=== PATIENT | male | born 1970 | race Hispanic/Latino ===

== ENCOUNTER 2019-05-09 13:55 | Emergency (ER) | payer OTHER ==
[2019-05-09] MEDS ORDERED: CEFTRIAXONE SODIUM 1 GM ONE (15:43)
[2019-05-09] MEDS ORDERED: LIDOCAINE HCL-MPF 1% 2ML VIAL ONE (15:43)
[2019-05-09] MEDS ORDERED: KETOROLAC TROMETHAMINE 60 MG/2 ML VIAL ONE (15:43)
[2019-05-09 15:56] LABS: BASOPHILS % (AUTO) 0.3 % (0.0-5.0); EOSINOPHILS % (AUTO) 0.3 % (0.0-8.0); HEMATOCRIT 45.5 % (42-54); LYMPHOCYTES % (AUTO) 21.4 % (21.0-51.0); MEAN CORPUSCULAR HEMOGLOBIN 29.4 pg (27.0-33.0); MEAN CORPUSCULAR HGB CONC 34.3 g/dL (32.0-36.0); MEAN CORPUSCULAR VOLUME 85.8 fL (79-99); MONOCYTES % (AUTO) 8.2 % (3.0-13.0); NEUTROPHILS % (AUTO) 69.6 % (40.0-77.0); PLATELET COUNT (AUTO) 188 K/uL (130-400); RED CELL DISTRIBUTION WIDTH 12.1 % (11.0-15.5); WHITE BLOOD COUNT (AUTO) 9.5 K/uL (4.8-10.8)
[2019-05-09 16:08] LABS: CREATININE 0.8 mg/dL (0.5-1.5); POTASSIUM 3.7 mmol/L (3.5-5.1)
[2019-05-09 16:12] LABS: ALBUMIN 3.7 g/dL (3.5-5.0); BILIRUBIN,TOTAL 0.4 mg/dL (0.2-1.0); TOTAL PROTEIN, SERUM 8.3 g/dL (6.0-8.3)
== END 2019-05-09 16:43 | disposition home or self-care (01) ==
LOC: EDH 13:55
DX: K02.9 Dental caries, unspecified (principal); R73.9 Hyperglycemia, unspecified
CPT/HCPCS: 36415; 80053; 85025; 96372 ×2; 99284; J0696; J1885; J3490

== ENCOUNTER 2019-09-22 16:21 | Inpatient (IN) | payer SELFPAY ==
[~2019-09-22] VITALS: Ht 177.8 cm; Wt 94.8 kg
[2019-09-22] MEDS ORDERED: ZOSYN 3.375GM+NS 50ML 50 ML IV ONE (17:26)
[2019-09-22 18:14] LABS: BASOPHILS % (AUTO) 0.2 % (0.0-5.0); EOSINOPHILS % (AUTO) 0.6 % (0.0-8.0); MEAN CORPUSCULAR HEMOGLOBIN 29.1 pg (27.0-33.0); MEAN CORPUSCULAR VOLUME 85.4 fL (79-99); MONOCYTES % (AUTO) 7.9 % (3.0-13.0); NEUTROPHILS % (AUTO) 80.8 % (40.0-77.0); PLATELET COUNT (AUTO) 204 K/uL (130-400); RED BLOOD CELL COUNT(AUTO) 4.92 MIL/uL (4.50-6.20); RED CELL DISTRIBUTION WIDTH 11.9 % (11.0-15.5); WHITE BLOOD COUNT (AUTO) 15.6 K/uL (4.8-10.8)
[2019-09-22 18:15] LABS: APPEARANCE,URINE Cloudy (CLEAR); BILIRUBIN,URINE Negative (NEGATIVE); COLOR,URINE Yellow (YELLOW); GLUCOSE, URINE (UA) >=1000 mg/dL (NEGATIVE); KETONES,URINE 40 mg/dL (NEGATIVE); LEUKOCYTE ESTERASE ,URINE Moderate (NEGATIVE); NITRATE,URINE Negative (NEGATIVE); OCCULT BLOOD,URINE Moderate (NEGATIVE); PH,URINE 5.5 (5.0-8.0); PROTEIN,URINE POS 1+ mg/dL (NEGATIVE)
[2019-09-22] MEDS ORDERED: ACETAMINOPHEN 325 MG TAB ONE (18:23)
[2019-09-22 18:29] LABS: INR 1.02 (0.85-1.15); PARTIAL THROMBOPLASTIN TIME 31.9 SEC (26.3-35.5)
[2019-09-22 18:30] LABS: CARBON DIOXIDE 30 mmol/L (21-32); CHLORIDE 95 mmol/L (101-111); CREATININE 0.9 mg/dL (0.5-1.5); GLOMERULAR FILTR. RATE CALC 96 mL/min (>60); GLUCOSE,RANDOM 183 mg/dL (70-105); POTASSIUM 3.6 mmol/L (3.5-5.1); SODIUM SERUM 133 mmol/L (136-145); UREA NITROGEN, BLOOD 11 mg/dL (7-18)
[2019-09-22] MEDS ORDERED: MORPHINE SULFATE 4 MG/1ML SYG ONE (18:39)
[2019-09-22] MEDS ORDERED: ONDANSETRON HCL 4 MG/2 ML VIAL ONE (18:39)
[2019-09-22 18:42] LABS: ALANINE AMINOTRANSFERASE 26 U/L (12-78); ALBUMIN 3.1 g/dL (3.5-5.0); ASPARTATE AMINOTRANSFERASE 20 U/L (10-37); BILIRUBIN,TOTAL 0.6 mg/dL (0.2-1.0); CREATINE KINASE, TOTAL 52 U/L (21-232); MYOGLOBIN 17 ng/mL (10-92); TOTAL PROTEIN, SERUM 8.1 g/dL (6.0-8.3); TROPONIN I < 0.04 ng/mL (0.00-0.06)
[2019-09-22 18:44] LABS: BACTERIA,URINE Moderate /HPF (None Seen); MUCUS,URINE Moderate LPF (None Seen); SQUAMOUS EPITHELIAL CELL,UR Moderate /HPF (0-2); WBC,URINE 26-50 /HPF (0-1)
[2019-09-22] MEDS ORDERED: IOHEXOL-350 50ML VIAL IV ONE (18:54)
[2019-09-22] MEDS ORDERED: LACTULOSE 20 GM/30 ML UDCUP PO PRN (19:45)
[2019-09-22] MEDS ORDERED: ONDANSETRON HCL 4 MG/2 ML VIAL IV PRN (19:45)
[2019-09-22] MEDS ORDERED: HYDRALAZINE HCL 20 MG/ML VIAL IV PRN (19:45)
[2019-09-22] MEDS ORDERED: ACETAMINOPHEN 325 MG TAB PO PRN (19:45)
[2019-09-22] MEDS ORDERED: MORPHINE SULFATE 2 MG/ML 1ML SYG ONE (20:36)
[2019-09-22] MEDS: FAMOTIDINE 20MG TAB 20 MG TAB PO SCH (21:00)
[2019-09-22] MEDS: INSULIN HUMULIN R 100 UNIT/ML 3ML SQ SCH (21:00)
[2019-09-22] MEDS ORDERED: KETOROLAC TROMETHAMINE 15MG/ML ONE (21:36)
[2019-09-22] MEDS ORDERED: VANCOMYCIN PROTOCOL PER PHARMACY IV SCH (21:45)
[2019-09-22] MEDS: PHARMACY COMMUNICATION MISC SCH (22:15)
[2019-09-22] MEDS: SODIUM CHLORIDE 0.9% 1000ML 1,000 ML IV SCH (23:20)
[2019-09-23] VITALS (7 sets, daily range): BP systolic 117–144; BP diastolic 62–83
[2019-09-23] MEDS: PHARMACY COMMUNICATION MISC SCH ×5 (00:15→08:15)
[2019-09-23] MEDS: ZOSYN 3.375GM+NS 50ML 50 ML IV SCH ×3 (02:06→17:06)
[2019-09-23] MEDS: KETOROLAC TROMETHAMINE 15MG/ML IV PRN ×4 (02:34→21:55)
[2019-09-23 03:59] LABS: BASOPHILS % (AUTO) 0.1 % (0.0-5.0); EOSINOPHILS % (AUTO) 0.2 % (0.0-8.0); HEMATOCRIT 37.1 % (42-54); LYMPHOCYTES % (AUTO) 8.2 % (21.0-51.0); MEAN CORPUSCULAR VOLUME 85.5 fL (79-99); MONOCYTES % (AUTO) 9.6 % (3.0-13.0); NEUTROPHILS % (AUTO) 81.3 % (40.0-77.0); PLATELET COUNT (AUTO) 180 K/uL (130-400); RED BLOOD CELL COUNT(AUTO) 4.34 MIL/uL (4.50-6.20); RED CELL DISTRIBUTION WIDTH 11.7 % (11.0-15.5); WHITE BLOOD COUNT (AUTO) 15.1 K/uL (4.8-10.8)
[2019-09-23 04:16] LABS: CREATININE 0.9 mg/dL (0.5-1.5); POTASSIUM 3.5 mmol/L (3.5-5.1)
[2019-09-23] MEDS: SODIUM CHLORIDE 0.9% 1000ML 1,000 ML IV SCH ×2 (06:31→19:28)
[2019-09-23] MEDS: MORPHINE SULFATE 2 MG/ML 1ML SYG IV PRN (07:22)
[2019-09-23] MEDS: INSULIN HUMULIN R 100 UNIT/ML 3ML SQ SCH ×4 (07:30→21:57)
[2019-09-23] MEDS: FAMOTIDINE 20MG TAB 20 MG TAB PO SCH ×2 (09:00→21:56)
[2019-09-23] MEDS: ACETAMINOPHEN 325 MG TAB PO PRN ×2 (09:12→16:42)
--- NOTE | 2019-09-23 10:00 | NUR ---
SPOKE WITH DR NASH REGARDING CONSULT, INFORMED MD OF PT FEVER OF 102.0. NO ORDERS GIVEN.
[2019-09-23] MEDS ORDERED: COMPOUND IV REFRIGERATED 1 EACH IVSOLN MISC PRN (11:15)
[2019-09-23] MEDS ORDERED: VANCOMYCIN 2 GM in SODIUM CHLORIDE 0.9% 500ML 500 ML IV SCH (11:15)
--- NOTE | 2019-09-23 13:20 | NUR ---
MET W PATIENT FOR DC PLANNING PATIENT LIVES WITH SPOUSE [facility] WHO WILL PROVIDE TRANSPORT HOME. PATIENT IS ACTIVE, INDEPENDENT, EMPLOYED, UNINSURED, USED TO BE WITH [facility] AND STATES WILL FOLLOW UP WITH THEM ON DISCHARGE. [facility] PKT PLACED IN CHART FOR DISHCRGE- PT ON CONTACT PRECUATIONS. CM TO FOLLOW Addendum: 09/26/19 at 0841 by TRA CABELLO RN CM Amended: Links added.
[2019-09-23] MEDS: ENOXAPARIN SODIUM 40 MG/0.4 ML SYRINGE SQ SCH (16:44)
[2019-09-23] MEDS ORDERED: PHARMACY COMMUNICATION MISC SCH (17:15)
[2019-09-23] MEDS: VANCOMYCIN 1.25 GM in SODIUM CHLORIDE 0.9% 250 ML IV SCH (21:54)
[2019-09-24] VITALS (19 sets, daily range): BP systolic 103–141; BP diastolic 53–94
[2019-09-24] MEDS: ZOSYN 3.375GM+NS 50ML 50 ML IV SCH ×5 (01:00→23:56)
[2019-09-24] MEDS: SODIUM CHLORIDE 0.9% 1000ML 1,000 ML IV SCH ×3 (01:37→23:57)
[2019-09-24] MEDS: KETOROLAC TROMETHAMINE 15MG/ML IV PRN ×3 (03:36→19:24)
--- NOTE | 2019-09-24 05:06 | NUR ---
PATIENT UPDATE Pt NPO post mn, going for incision and drainage of abscess from the posterior neck . Medicated twice with tramadol 15 mg iv for pain score bet 9-10. Patient refusing to get the Morphine for pain meds, stated that it's really not helping him at all. Slept fairly overnight. Highest temp overnight of 99.4, continues with the Zosyn and Vancomycin for iv antibiotic management.
[2019-09-24 05:46] LABS: BASOPHILS % (AUTO) 0.3 % (0.0-5.0); CREATININE 0.9 mg/dL (0.5-1.5); EOSINOPHILS % (AUTO) 0.4 % (0.0-8.0); MEAN CORPUSCULAR HEMOGLOBIN 29.2 pg (27.0-33.0); MONOCYTES % (AUTO) 9.2 % (3.0-13.0); NEUTROPHILS % (AUTO) 80.5 % (40.0-77.0); PLATELET COUNT (AUTO) 175 K/uL (130-400); POTASSIUM 3.1 mmol/L (3.5-5.1); RED BLOOD CELL COUNT(AUTO) 4.07 MIL/uL (4.50-6.20); RED CELL DISTRIBUTION WIDTH 11.7 % (11.0-15.5); WHITE BLOOD COUNT (AUTO) 11.4 K/uL (4.8-10.8)
[2019-09-24] MEDS: VANCOMYCIN 1.25 GM in SODIUM CHLORIDE 0.9% 250 ML IV SCH ×3 (06:10→21:07)
[2019-09-24] MEDS: INSULIN HUMULIN R 100 UNIT/ML 3ML SQ SCH ×4 (06:10→21:08)
[2019-09-24] MEDS ORDERED: SUCCINYLCHOLINE 200MG/10ML SYR ONE (08:12)
[2019-09-24] MEDS ORDERED: LIDOCAINE PF 2% 5ML ABBOJECT ONE (08:12)
[2019-09-24] MEDS ORDERED: FENTANYL CITRATE PF 50 MCG/1 ML 2ML VIAL ONE ×2 (08:13→09:00)
[2019-09-24] MEDS ORDERED: MIDAZOLAM HCL 1 MG/ML 2ML VIAL ONE (08:13)
[2019-09-24] MEDS ORDERED: ONDANSETRON HCL 4 MG/2 ML VIAL ONE (08:13)
[2019-09-24] MEDS ORDERED: ROCURONIUM 10MG/1ML SYR 10 MG/ML ML ONE (08:13)
[2019-09-24] MEDS ORDERED: PROPOFOL 10 MG/ML 20ML VIAL IV ONE (08:13)
[2019-09-24] MEDS ORDERED: EPHEDRINE SULFATE 50 MG/ML AMPULE ONE (08:51)
[2019-09-24] MEDS: ENOXAPARIN SODIUM 40 MG/0.4 ML SYRINGE SQ SCH (09:00)
[2019-09-24] MEDS ORDERED: MEPERIDINE-PF 25 MG/ML SYG ONE ×2 (09:38→09:53)
[2019-09-24] MEDS: FAMOTIDINE 20MG TAB 20 MG TAB PO SCH ×2 (11:07→19:24)
[2019-09-24] MEDS: MORPHINE SULFATE 2 MG/ML 1ML SYG IV PRN (14:13)
[2019-09-24] MEDS ORDERED: POTASSIUM CHLORIDE 10% ELIXIR 20 MEQ/15 ML UDCUP PO PRN (18:45)
[2019-09-24] MEDS ORDERED: POTASSIUM CHLORIDE 20MEQ/100ML 100 ML IV PRN (18:45)
[2019-09-24] MEDS ORDERED: LIDOCAINE HCL-MPF 1% 2ML VIAL IV PRN (18:45)
[2019-09-25] MEDS: MORPHINE SULFATE 2 MG/ML 1ML SYG IV PRN ×2 (00:04→11:05)
[2019-09-25 00:10] VITALS: BP 132/83
[2019-09-25] MEDS: POTASSIUM CHLORIDE 20 MEQ ERTAB PO PRN ×3 (01:33→04:18)
[2019-09-25] MEDS: VANCOMYCIN 1.25 GM in SODIUM CHLORIDE 0.9% 250 ML IV SCH (04:18)
[2019-09-25 04:27] VITALS: BP 124/77
[2019-09-25] MEDS: INSULIN HUMULIN R 100 UNIT/ML 3ML SQ SCH ×2 (05:16→12:38)
[2019-09-25 05:21] LABS: BASOPHILS % (AUTO) 0.5 % (0.0-5.0); EOSINOPHILS % (AUTO) 0.9 % (0.0-8.0); HEMATOCRIT 33.9 % (42-54); LYMPHOCYTES % (AUTO) 23.6 % (21.0-51.0); MEAN CORPUSCULAR HEMOGLOBIN 28.7 pg (27.0-33.0); MEAN CORPUSCULAR VOLUME 86.9 fL (79-99); MONOCYTES % (AUTO) 10.6 % (3.0-13.0); NEUTROPHILS % (AUTO) 64.1 % (40.0-77.0); PLATELET COUNT (AUTO) 163 K/uL (130-400); RED CELL DISTRIBUTION WIDTH 11.9 % (11.0-15.5); WHITE BLOOD COUNT (AUTO) 6.4 K/uL (4.8-10.8)
[2019-09-25] MEDS: KETOROLAC TROMETHAMINE 15MG/ML IV PRN ×2 (06:31→12:17)
[2019-09-25 08:00] VITALS: BP 154/92
[2019-09-25] MEDS ORDERED: ACETAMINOPHEN-CODEINE 300/30MG TAB PO PRN (10:30)
[2019-09-25] MEDS: ZOSYN 3.375GM+NS 50ML 50 ML IV SCH (10:45)
[2019-09-25] MEDS: SODIUM CHLORIDE 0.9% 1000ML 1,000 ML IV SCH (10:45)
[2019-09-25] MEDS: FAMOTIDINE 20MG TAB 20 MG TAB PO SCH (10:45)
[2019-09-25] MEDS: ENOXAPARIN SODIUM 40 MG/0.4 ML SYRINGE SQ SCH (10:53)
[2019-09-25 11:00] VITALS: BP 138/83
== END 2019-09-25 14:25 | disposition home or self-care (01) | DRG 854 ==
LOC: EDH 16:21 → EDHIP 16:22 → 3BH 21:08
PROVIDERS: ADMIT Internal Medicine; ATTEND Internal Medicine
PROC: 0J950ZZ Drainage of Left Neck Subcutaneous Tissue and Fascia, Open Approach (ICD-10-PCS; principal; 2019-09-24 08:17)
DX: A41.9 Sepsis, unspecified organism (principal); L03.221 Cellulitis of neck; N39.0 Urinary tract infection, site not specified; L02.11 Cutaneous abscess of neck; K21.9 Gastro-esophageal reflux disease without esophagitis; E11.9 Type 2 diabetes mellitus without complications; E66.9 Obesity, unspecified; Z68.30 Body mass index [BMI] 30.0-30.9, adult
CPT/HCPCS: 36415; 70491; 71045; 80048; 80053; 80202; 81001; 82550; 82948; 83036; 83605; 83874; 84145; 84484; 85025; 85610; 85651; 85730; 87040; 87070; 87076; 87077; 87088; 87186; 87205; 93005; G0378; J0330; J1650; J1815; J1885; J2001; J2175; J2250; J2270; J2405; J2543; J2704; J3010; J3370; J3490; J7030; J7040; J7050; Q9967

== ENCOUNTER 2019-12-05 20:03 | Emergency (ER) | payer OTHER ==
[2019-12-05] MEDS ORDERED: LIDOCAINE HCL 1% 20 ML VIAL ONE (20:26)
== END 2019-12-05 21:57 | disposition home or self-care (01) ==
LOC: EDH 20:03
DX: L02.811 Cutaneous abscess of head [any part, except face] (principal); E11.9 Type 2 diabetes mellitus without complications; Z79.899 Other long term (current) drug therapy
CPT/HCPCS: 10060

== ENCOUNTER 2022-08-04 13:09 | Inpatient (IN) | payer OTHER ==
[~2022-08-04] VITALS: Ht 177.8 cm; Wt 78.5 kg
[2022-08-04] MEDS ORDERED: ZOSYN 3.375GM +NS 50ML IVPB ONE (14:30)
[2022-08-04] MEDS ORDERED: 0.9%NACL 1000ML 1,000 ML IV ONE (14:30)
[2022-08-04 14:57] LABS: BASOPHILS % (AUTO) 0.4 % (0.0-5.0); EOSINOPHILS % (AUTO) 0.5 % (0.0-8.0); HEMATOCRIT 43.3 % (42-54); LYMPHOCYTES % (AUTO) 19.7 % (21.0-51.0); MEAN CORPUSCULAR HEMOGLOBIN 29.2 pg (27.0-33.0); MEAN CORPUSCULAR HGB CONC 33.9 g/dL (32.0-36.0); MEAN CORPUSCULAR VOLUME 85.9 fL (79-99); MONOCYTES % (AUTO) 7.8 % (3.0-13.0); NEUTROPHILS % (AUTO) 71.3 % (40.0-77.0); PLATELET COUNT (AUTO) 263 K/uL (130-400); RED BLOOD CELL COUNT(AUTO) 5.04 MIL/uL (4.50-6.20); WHITE BLOOD COUNT (AUTO) 7.7 K/uL (4.8-10.8)
[2022-08-04 15:23] LABS: CREATININE 1.2 mg/dL (0.5-1.5); POTASSIUM 3.9 mmol/L (3.5-5.1)
[2022-08-04 15:29] LABS: TOTAL PROTEIN, SERUM 8.8 g/dL (6.0-8.3)
[2022-08-04] MEDS ORDERED: MORPHINE 2 MG SYG ONE (16:09)
[2022-08-04] MEDS ORDERED: KCL 20 MEQ ERTAB PO PRN (16:30)
[2022-08-04] MEDS ORDERED: LACTULOSE 20 GM/30 ML UDCUP PO PRN (16:30)
[2022-08-04] MEDS ORDERED: DEXTROSE 50%-WATER 50 ML DISP.SYRIN IV PRN (16:30)
[2022-08-04] MEDS ORDERED: POTASSIUM CHLORIDE 10% ELIXIR 20 MEQ/15 ML UDCUP PO PRN (16:30)
[2022-08-04] MEDS ORDERED: POTASSIUM CHLORIDE 20MEQ/100ML 100 ML IV PRN (16:30)
[2022-08-04] MEDS ORDERED: GLUCAGON 1MG KIT 1 MG ML IM PRN (16:30)
[2022-08-04] MEDS ORDERED: ONDANSETRON 4MG INJ IV PRN (16:30)
[2022-08-04] MEDS ORDERED: ACETAMINOPHEN WITH CODEINE 1 TAB TAB PO PRN (16:30)
[2022-08-04] MEDS ORDERED: MAG/ALUM/SIMETH 30 ML UDCUP PO PRN (16:30)
[2022-08-04] MEDS ORDERED: ZOLPIDEM TARTRATE 5 MG TAB PO PRN (16:30)
[2022-08-04] MEDS ORDERED: MORPHINE 2 MG SYG IVP ONE (16:30)
[2022-08-04] MEDS: 0.9%NACL 1000ML 1,000 ML IV SCH (16:30)
[2022-08-04] MEDS ORDERED: MAGNESIUM 2GM PREMIX 50ML 50 ML IV PRN (16:30)
[2022-08-04] MEDS ORDERED: VANCOMYCIN PROTOCOL PER PHARMACY IV PRN (16:30)
[2022-08-04] MEDS ORDERED: ACETAMINOPHEN 325 MG TAB PO PRN ×2 (16:30)
[2022-08-04 17:00] LABS: CHOLESTEROL 187 mg/dL (<200); HDL CHOLESTEROL 48 mg/dL (29-71); LDL DIRECT 112 mg/dL (0-99); TRIGLYCERIDES 280 mg/dL (30-200)
[2022-08-04 17:07] LABS: HEMOGLOBIN A1C 12.8 % (4.0-6.0)
[2022-08-04] MEDS ORDERED: MORPHINE 2 MG SYG IVP PRN (18:00)
[2022-08-04] MEDS ORDERED: MORPHINE 4 MG SYG IM PRN (18:00)
[2022-08-04 19:15] VITALS: BP 112/67
[2022-08-04] MEDS: ZOSYN 3.375GM+NS 50ML 50 ML IVPB SCH (20:09)
[2022-08-04] MEDS: FAMOTIDINE 20MG TAB PO SCH (20:09)
[2022-08-04] MEDS: INSULIN HUMULIN R 100 UNIT/ML 3ML SQ SCH (20:14)
[2022-08-04] MEDS: VANCOMYCIN 1.25 GM/250 ML BAG 250 ML IV SCH (21:06)
[2022-08-04] MEDS: ACETAMINOPHEN WITH CODEINE 1 TAB TAB PO PRN (21:41)
[2022-08-04] MEDS ORDERED: MORPHINE 4 MG SYG IV PRN (22:00)
[2022-08-05] VITALS: BP 124/68
[2022-08-05 04:00] VITALS: BP 111/72
[2022-08-05] MEDS: ZOSYN 3.375GM+NS 50ML 50 ML IVPB SCH ×3 (04:08→19:36)
[2022-08-05 05:30] LABS: BASOPHILS % (AUTO) 0.7 % (0.0-5.0); HEMATOCRIT 39.2 % (42-54); LYMPHOCYTES % (AUTO) 33.9 % (21.0-51.0); MEAN CORPUSCULAR HEMOGLOBIN 29.2 pg (27.0-33.0); MEAN CORPUSCULAR HGB CONC 33.9 g/dL (32.0-36.0); MEAN CORPUSCULAR VOLUME 86.2 fL (79-99); MONOCYTES % (AUTO) 9.6 % (3.0-13.0); NEUTROPHILS % (AUTO) 54.5 % (40.0-77.0); PLATELET COUNT (AUTO) 215 K/uL (130-400); RED BLOOD CELL COUNT(AUTO) 4.55 MIL/uL (4.50-6.20); RED CELL DISTRIBUTION WIDTH 11.9 % (11.0-15.5); WHITE BLOOD COUNT (AUTO) 6.9 K/uL (4.8-10.8)
[2022-08-05] MEDS: 0.9%NACL 1000ML 1,000 ML IV SCH ×2 (05:36→09:48)
[2022-08-05] MEDS: INSULIN HUMULIN R 100 UNIT/ML 3ML SQ SCH ×4 (05:36→20:32)
[2022-08-05 05:46] LABS: ALBUMIN 2.3 g/dL (3.5-5.0); POTASSIUM 4.5 mmol/L (3.5-5.1); TOTAL PROTEIN, SERUM 7.1 g/dL (6.0-8.3)
[2022-08-05 07:34] VITALS: BP 122/79
[2022-08-05] MEDS: ACETAMINOPHEN WITH CODEINE 1 TAB TAB PO PRN ×2 (08:42→17:51)
[2022-08-05] MEDS: FAMOTIDINE 20MG TAB PO SCH ×2 (08:43→19:37)
[2022-08-05] MEDS: ENOXAPARIN SODIUM 30 MG/0.3 ML SQ SCH (08:43)
[2022-08-05] MEDS: VANCOMYCIN 1.25 GM/250 ML BAG 250 ML IV SCH ×2 (09:47→19:36)
[2022-08-05 11:22] VITALS: BP 119/73
[2022-08-05 20:00] VITALS: BP 125/71
[2022-08-05] MEDS ORDERED: ATORVASTATIN 40 MG TABLET PO SCH (21:00)
[2022-08-06] VITALS: BP 139/90
[2022-08-06] MEDS: ACETAMINOPHEN WITH CODEINE 1 TAB TAB PO PRN ×2 (02:26→11:21)
[2022-08-06 04:00] VITALS: BP 125/79
[2022-08-06] MEDS: ZOSYN 3.375GM+NS 50ML 50 ML IVPB SCH ×2 (04:29→13:47)
[2022-08-06] MEDS: INSULIN HUMULIN R 100 UNIT/ML 3ML SQ SCH ×2 (05:42→12:32)
[2022-08-06 06:59] LABS: BASOPHILS % (AUTO) 0.6 % (0.0-5.0); EOSINOPHILS % (AUTO) 1.2 % (0.0-8.0); HEMATOCRIT 38.3 % (42-54); LYMPHOCYTES % (AUTO) 39.3 % (21.0-51.0); MEAN CORPUSCULAR HEMOGLOBIN 29.4 pg (27.0-33.0); MEAN CORPUSCULAR HGB CONC 34.2 g/dL (32.0-36.0); MEAN CORPUSCULAR VOLUME 85.9 fL (79-99); MONOCYTES % (AUTO) 7.2 % (3.0-13.0); NEUTROPHILS % (AUTO) 51.5 % (40.0-77.0); PLATELET COUNT (AUTO) 214 K/uL (130-400); RED BLOOD CELL COUNT(AUTO) 4.46 MIL/uL (4.50-6.20); RED CELL DISTRIBUTION WIDTH 12.1 % (11.0-15.5); WHITE BLOOD COUNT (AUTO) 4.9 K/uL (4.8-10.8)
[2022-08-06 07:19] LABS: ALBUMIN 2.5 g/dL (3.5-5.0); CREATININE 0.9 mg/dL (0.5-1.5); POTASSIUM 4.4 mmol/L (3.5-5.1); TOTAL PROTEIN, SERUM 7.1 g/dL (6.0-8.3)
[2022-08-06 07:40] VITALS: BP 127/89
[2022-08-06] MEDS: ENOXAPARIN SODIUM 30 MG/0.3 ML SQ SCH ×2 (09:00→09:09)
[2022-08-06] MEDS: FAMOTIDINE 20MG TAB PO SCH (09:07)
[2022-08-06] MEDS: VANCOMYCIN 1.25 GM/250 ML BAG 250 ML IV SCH (09:07)
[2022-08-06] MEDS: 0.9%NACL 1000ML 1,000 ML IV SCH (09:10)
[2022-08-06 11:34] VITALS: BP 138/89
[2022-08-06] MEDS ORDERED: VANCOMYCIN 1G/250ML KIT 250 ML IV SCH (16:00)
[2022-08-06] MEDS ORDERED: INSULIN GLARGINE 100 UNITS/ML 10 ML VIAL SQ SCH (21:00)
== END 2022-08-06 15:42 | disposition left against medical advice (07) | DRG 638 ==
LOC: EDH 13:09 → EDHIP 13:10 → 4DH 19:07
PROVIDERS: ADMIT Hospitalist; ATTEND Hospitalist
DX: E11.69 Type 2 diabetes mellitus with other specified complication (principal); E44.1 Mild protein-calorie malnutrition; M86.8X7 Other osteomyelitis, ankle and foot; L03.116 Cellulitis of left lower limb; E11.65 Type 2 diabetes mellitus with hyperglycemia; E11.621 Type 2 diabetes mellitus with foot ulcer; E66.09 Other obesity due to excess calories; E78.5 Hyperlipidemia, unspecified; E86.0 Dehydration; I10 Essential (primary) hypertension; K59.00 Constipation, unspecified; Z82.49 Family history of ischemic heart disease and other diseases of the circulatory system; Z83.3 Family history of diabetes mellitus; Z91.199 Patient's noncompliance with other medical treatment and regimen due to unspecified reason; Z68.24 Body mass index [BMI] 24.0-24.9, adult
CPT/HCPCS: 36415; 73630; 80053; 80061; 80202; 82306; 82948; 83036; 83605; 84145; 85025; 85651; 87040; G0378; J1650; J1815; J2270; J2543; J7030

== ENCOUNTER 2022-08-29 18:20 | Emergency (ER) | payer OTHER ==
[~2022-08-29] VITALS: Ht 177.8 cm; Wt 72.6 kg
[2022-08-29 18:22] VITALS: BP 104/67
[2022-08-29 19:58] LABS: BASOPHILS % (AUTO) 0.3 % (0.0-5.0); EOSINOPHILS % (AUTO) 0.2 % (0.0-8.0); HEMATOCRIT 42.4 % (42-54); LYMPHOCYTES % (AUTO) 21.9 % (21.0-51.0); MEAN CORPUSCULAR HEMOGLOBIN 29.4 pg (27.0-33.0); MEAN CORPUSCULAR HGB CONC 34.2 g/dL (32.0-36.0); MEAN CORPUSCULAR VOLUME 85.8 fL (79-99); MONOCYTES % (AUTO) 5.9 % (3.0-13.0); NEUTROPHILS % (AUTO) 71.4 % (40.0-77.0); PLATELET COUNT (AUTO) 248 K/uL (130-400); RED BLOOD CELL COUNT(AUTO) 4.94 MIL/uL (4.50-6.20); RED CELL DISTRIBUTION WIDTH 12.6 % (11.0-15.5); WHITE BLOOD COUNT (AUTO) 8.7 K/uL (4.8-10.8)
[2022-08-29 20:07] LABS: CREATININE 1.3 mg/dL (0.5-1.5); POTASSIUM 3.7 mmol/L (3.5-5.1)
[2022-08-29 20:12] LABS: ALBUMIN 3.3 g/dL (3.5-5.0); TOTAL PROTEIN, SERUM 9.3 g/dL (6.0-8.3)
[2022-08-29] MEDS ORDERED: CLIN-141 PO (23:33)
== END 2022-08-29 23:33 | disposition home or self-care (01) ==
LOC: EDH 18:20
DX: E11.65 Type 2 diabetes mellitus with hyperglycemia (principal); I10 Essential (primary) hypertension; M79.675 Pain in left toe(s); Z02.89 Encounter for other administrative examinations; Z98.890 Other specified postprocedural states
CPT/HCPCS: 36415; 73630; 80053; 82948; 83605; 84484; 85025; 93005